=== PATIENT | female | born 2000 | race Caucasian/White ===

== ENCOUNTER 2019-02-02 17:54 | Inpatient (IN) ==
[2019-02-02] MEDS ORDERED: LR 1,000 ML ONE (18:45)
[2019-02-02] MEDS ORDERED: BRETHINE SUBQ PRN (19:11)
[2019-02-02] MEDS ORDERED: PEPCID PO PRN (19:11)
[2019-02-02] MEDS ORDERED: STADOL IV PRN ×2 (19:11)
[2019-02-02] MEDS ORDERED: LR 1,000 ML IV ONE (19:11)
[2019-02-02] MEDS ORDERED: PEPCID IV PRN (19:11)
[2019-02-02] MEDS ORDERED: REGLAN PO ONE (19:11)
[2019-02-02] MEDS ORDERED: PEPCID PO ONE (19:11)
[2019-02-02] MEDS ORDERED: KEFZOL 1 GM/D5W 1 GM/50 ML IVPB IV PRN (19:11)
[2019-02-02] MEDS ORDERED: AMBIEN PO PRN (19:11)
[2019-02-02] MEDS ORDERED: ZOFRAN IV PRN (19:11)
[2019-02-02] MEDS ORDERED: TYLENOL PO PRN (19:11)
[2019-02-02] MEDS ORDERED: LR 1,000 ML IV SCH (19:15)
[2019-02-02] MEDS ORDERED: XYLOCAINE-MPF 1% INJ PRN (19:15)
[2019-02-02] MEDS ORDERED: MINERAL OIL PRN (19:15)
[2019-02-02 19:20] LABS: URINE SOURCE VOIDED
[2019-02-02 19:34] LABS: BASO# 0.01 X1000 (0.0-0.2); BASO% 0.1 % (0.0-0.8); EOS# 0.07 X1000 (0.0-0.7); EOS% 0.6 % (0.0-10.0); HEMATOCRIT 34.1 % (37.0-47.0); HEMOGLOBIN 11.8 g/dL (12.0-16.0); IMM GRAN# 0.04 X1000 (0.0-0.04); IMM GRAN% 0.3 % (0.0-0.5); LYMPH# 2.23 X1000 (1.2-3.4); LYMPH% 19.3 % (20.5-51.1); MCH 27.3 PG (27-31); MCHC 34.6 g/dL (33-37); MCV 78.9 FL (81-99); MONO% 4.3 % (1.7-9.3); MPV 11.3 FL (7.4-10.4); NEUT# 8.72 X1000 (1.4-6.5); NEUT% 75.4 % (42.2-75.2); PLT 217 X1000 (130-400); RBC 4.32 XMIL (4.2-5.4); RDW 13.9 % (11.5-14.5); WBC 11.57 X1000 (4.8-10.8)
[2019-02-02 19:42] LABS: BILIRUBIN URINE NEGATIVE (NEGATIVE); BLOOD URINE NEGATIVE (NEGATIVE); CLARITY CLEAR (CLEAR); COLOR YELLOW; GLUCOSE URINE NEGATIVE (NEGATIVE); KETONE URINE NEGATIVE (NEGATIVE); LEUKOCYTES URINE NEGATIVE (NEGATIVE); NITRITE URINE NEGATIVE (NEGATIVE); PROTEIN URINE TRACE mg/dL (NEGATIVE); UROBILINOGEN URINE NORMAL
[2019-02-02 19:58] LABS: HEMOGLOBIN A1C 5.4 % (4.8-6.0)
[2019-02-02 20:01] LABS: UR AMPHETAMINES QUAL NONE DETECTED (NONE DETECT); UR BARBITUATES QUAL NONE DETECTED (NONE DETECT); UR BENZODIAZEPIN QUAL NONE DETECTED (NONE DETECT); UR CANNABINOIDS QUAL NONE DETECTED (NONE DETECT); UR COCAINE QUAL NONE DETECTED (NONE DETECT); UR METHADONE QUAL NONE DETECTED (NONE DETECT); UR METHAMPHETAMINE QUAL NONE DETECTED (NONE DETECT); UR OPIATES QUAL NONE DETECTED (NONE DETECT); UR OXYCODONE QUAL NONE DETECTED (NONE DETECT); UR PCP QUAL NONE DETECTED (NONE DETECT); UR PROPOXYPHENE QUAL NONE DETECTED (NONE DETECT); UR TCA QUAL NONE DETECTED (NONE DETECT)
[2019-02-02] MEDS: CYTOTEC PO SCH (20:35)
[2019-02-03] MEDS: CYTOTEC PO SCH ×2 (00:22→04:25)
--- NOTE | 2019-02-03 06:14 | HISTORY AND PHYSICAL ---
CHIEF COMPLAINT: Induction of labor. HISTORY OF PRESENT ILLNESS: Ms. Palacios is a 18-year-old, 1, para 0, at 39 to 40 weeks gestation who presents for elective induction. She had full care with Dr. Muhammad only complicated by abnormal 1 hour GTT with no 3 hour GTT secondary to patient's refusal. The patient reports active baby. Denies PIH symptoms. No contractions, vaginal bleeding, or loss of fluid. PAST MEDICAL HISTORY: Denies. PAST SURGICAL HISTORY: Denies. ALLERGIES: No known drug allergies. SOCIAL HISTORY: No tobacco, alcohol, or drug use. FAMILY HISTORY: Noncontributory. PHYSICAL EXAMINATION: VITAL SIGNS: Not yet recorded. GENERAL: Alert and oriented in no acute distress. CV: Regular rate and rhythm. PULMONARY: Clear to auscultation bilaterally. ABDOMEN: Soft, nondistended, and gravid. PELVIC: Cervix 125, -3, vertex. Bag of water intact. FHT's reassuring. LABORATORY: Pending. ASSESSMENT AND PLAN: Again, Ms. Palacios is a 18-year-old 1, para 0, 39 to 40 weeks, who presents for elective induction. Reassuring heart rate tracing, benign examination. We will proceed with Cytotec followed by Pitocin per protocol. The patient is anticipating a vaginal delivery. Patient desires future fertility. cc: Dionte Ortiz MD
[2019-02-03] MEDS ORDERED: PITOCIN 30 UNITS/NS 30 UNIT/500 ML IV.SOLN IV SCH ×2 (08:00→21:45)
[2019-02-03] MEDS: STADOL IV PRN ×4 (09:03→17:00)
--- NOTE | 2019-02-03 09:09 | OB/GYN PROGRESS NOTE ---
Progress Note OB - . OB Progress Note: Vital Signs - 24 hr 02/02/19 19:45 02/02/19 23:40 02/03/19 04:35 Temperature 97.6 F 97 F L 98.2 F Pulse Rate 78 79 81 Respiratory Rate 18 16 16 Blood Pressure 111/73 99/54 102/59 O2 Sat by Pulse Oximetry 98 98 97 Laboratory Results - last 24 hr 02/02/19 02/02/19 02/02/19 18:10 18:10 18:55 WBC RBC Hgb Hct MCV MCH MCHC RDW Std Deviation Plt Count MPV Immature Gran % (Auto) Neut % (Auto) Lymph % (Auto) [place] % (Auto) Eos % (Auto) Baso % (Auto) Immature Gran # (Auto) Neut # (Auto) Lymph # (Auto) [place] # (Auto) Eos # (Auto) Baso # (Auto) Estimat Average Glucose Hemoglobin A1c Urine Source VOIDED Urine Color YELLOW Urine Clarity CLEAR Urine pH 5.0 Ur Specific [place] 1.020 Urine Protein TRACE A Urine Ketones NEGATIVE Urine Blood NEGATIVE Urine Nitrite NEGATIVE Urine Bilirubin NEGATIVE Urine Urobilinogen NORMAL Urine WBC NEGATIVE Urine Glucose NEGATIVE Membranes Rupture Urine Opiates Screen NONE DETECTED Ur Oxycodone Screen NONE DETECTED Urine Methadone Screen NONE DETECTED U Propoxyphene Qual NONE DETECTED Ur Barbituates Screen NONE DETECTED Ur Tricyclics Screen NONE DETECTED Ur Phencyclidine Scrn NONE DETECTED Ur Amphetamines Screen NONE DETECTED U Methamphetamines Scrn NONE DETECTED U Benzodiazepines Scrn NONE DETECTED Urine Cocaine Screen NONE DETECTED U Cannabinoids Screen NONE DETECTED RPR NON-REACTIVE Blood Type Antibody Screen 02/02/19 02/02/19 02/02/19 18:55 18:55 21:37 WBC 11.57 H RBC 4.32 Hgb 11.8 L Hct 34.1 L MCV 78.9 L MCH 27.3 MCHC 34.6 RDW Std Deviation 13.9 Plt Count 217 MPV 11.3 H Immature Gran % (Auto) 0.3 Neut % (Auto) 75.4 H Lymph % (Auto) 19.3 L [place] % (Auto) 4.3 Eos % (Auto) 0.6 Baso % (Auto) 0.1 Immature Gran # (Auto) 0.04 Neut # (Auto) 8.72 H Lymph # (Auto) 2.23 [place] # (Auto) 0.50 Eos # (Auto) 0.07 Baso # (Auto) 0.01 Estimat Average Glucose 108 Hemoglobin A1c 5.4 Urine Source Urine Color Urine Clarity Urine pH Ur Specific [place] Urine Protein Urine Ketones Urine Blood Urine Nitrite Urine Bilirubin Urine Urobilinogen Urine WBC Urine Glucose Membranes Rupture Urine Opiates Screen Ur Oxycodone Screen Urine Methadone Screen U Propoxyphene Qual Ur Barbituates Screen Ur Tricyclics Screen Ur Phencyclidine Scrn Ur Amphetamines Screen U Methamphetamines Scrn U Benzodiazepines Scrn Urine Cocaine Screen U Cannabinoids Screen RPR Blood Type B POSITIVE Antibody Screen NEGATIVE 02/03/19 05:00 WBC RBC Hgb Hct MCV MCH MCHC RDW Std Deviation Plt Count MPV Immature Gran % (Auto) Neut % (Auto) Lymph % (Auto) [place] % (Auto) Eos % (Auto) Baso % (Auto) Immature Gran # (Auto) Neut # (Auto) Lymph # (Auto) [place] # (Auto) Eos # (Auto) Baso # (Auto) Estimat Average Glucose Hemoglobin A1c Urine Source Urine Color Urine Clarity Urine pH Ur Specific [place] Urine Protein Urine Ketones Urine Blood Urine Nitrite Urine Bilirubin Urine Urobilinogen Urine WBC Urine Glucose Membranes Rupture POSITIVE Urine Opiates Screen Ur Oxycodone Screen Urine Methadone Screen U Propoxyphene Qual Ur Barbituates Screen Ur Tricyclics Screen Ur Phencyclidine Scrn Ur Amphetamines Screen U Methamphetamines Scrn U Benzodiazepines Scrn Urine Cocaine Screen U Cannabinoids Screen RPR Blood Type Antibody Screen S: Patient without complaints. O: SVE: 2/thick/-3 FHTs: 120s; moderate variability; accelerations present; no apparent decels [place]: irritability A/P: 18yo at 40w3d with: 1. IUP- continue eIOL; s/p miso x3 doses overnight. Montiel bulb inserted for additional cervical ripening -ROM test positive overnight; no fever noted - well being: Cat 1 tracings 2. Failed 1hr GTT
--- NOTE | 2019-02-03 18:15 | OB/GYN PROGRESS NOTE ---
Progress Note OB - . OB Progress Note: Vital Signs - 24 hr 02/02/19 19:45 02/02/19 23:40 02/03/19 04:35 Temperature 97.6 F 97 F L 98.2 F Pulse Rate 78 79 81 Respiratory Rate 18 16 16 Blood Pressure 111/73 99/54 102/59 O2 Sat by Pulse Oximetry 98 98 97 02/03/19 08:00 02/03/19 12:00 02/03/19 15:29 Temperature 96.6 F L 97.3 F L 97.3 F L Pulse Rate 76 79 79 Respiratory Rate 16 18 16 Blood Pressure 118/56 97/52 114/56 O2 Sat by Pulse Oximetry 96 95 97 02/03/19 17:08 Temperature 96.8 F L Pulse Rate 18 L Respiratory Rate Blood Pressure 114/60 O2 Sat by Pulse Oximetry 96 Laboratory Results - last 24 hr 02/02/19 02/02/19 02/02/19 18:10 18:10 18:55 WBC RBC Hgb Hct MCV MCH MCHC RDW Std Deviation Plt Count MPV Immature Gran % (Auto) Neut % (Auto) Lymph % (Auto) [place] % (Auto) Eos % (Auto) Baso % (Auto) Immature Gran # (Auto) Neut # (Auto) Lymph # (Auto) [place] # (Auto) Eos # (Auto) Baso # (Auto) Estimat Average Glucose Hemoglobin A1c Urine Source VOIDED Urine Color YELLOW Urine Clarity CLEAR Urine pH 5.0 Ur Specific [place] 1.020 Urine Protein TRACE A Urine Ketones NEGATIVE Urine Blood NEGATIVE Urine Nitrite NEGATIVE Urine Bilirubin NEGATIVE Urine Urobilinogen NORMAL Urine WBC NEGATIVE Urine Glucose NEGATIVE Membranes Rupture Urine Opiates Screen NONE DETECTED Ur Oxycodone Screen NONE DETECTED Urine Methadone Screen NONE DETECTED U Propoxyphene Qual NONE DETECTED Ur Barbituates Screen NONE DETECTED Ur Tricyclics Screen NONE DETECTED Ur Phencyclidine Scrn NONE DETECTED Ur Amphetamines Screen NONE DETECTED U Methamphetamines Scrn NONE DETECTED U Benzodiazepines Scrn NONE DETECTED Urine Cocaine Screen NONE DETECTED U Cannabinoids Screen NONE DETECTED RPR NON-REACTIVE Blood Type Antibody Screen 02/02/19 02/02/19 02/02/19 18:55 18:55 21:37 WBC 11.57 H RBC 4.32 Hgb 11.8 L Hct 34.1 L MCV 78.9 L MCH 27.3 MCHC 34.6 RDW Std Deviation 13.9 Plt Count 217 MPV 11.3 H Immature Gran % (Auto) 0.3 Neut % (Auto) 75.4 H Lymph % (Auto) 19.3 L [place] % (Auto) 4.3 Eos % (Auto) 0.6 Baso % (Auto) 0.1 Immature Gran # (Auto) 0.04 Neut # (Auto) 8.72 H Lymph # (Auto) 2.23 [place] # (Auto) 0.50 Eos # (Auto) 0.07 Baso # (Auto) 0.01 Estimat Average Glucose 108 Hemoglobin A1c 5.4 Urine Source Urine Color Urine Clarity Urine pH Ur Specific [place] Urine Protein Urine Ketones Urine Blood Urine Nitrite Urine Bilirubin Urine Urobilinogen Urine WBC Urine Glucose Membranes Rupture Urine Opiates Screen Ur Oxycodone Screen Urine Methadone Screen U Propoxyphene Qual Ur Barbituates Screen Ur Tricyclics Screen Ur Phencyclidine Scrn Ur Amphetamines Screen U Methamphetamines Scrn U Benzodiazepines Scrn Urine Cocaine Screen U Cannabinoids Screen RPR Blood Type B POSITIVE Antibody Screen NEGATIVE 02/03/19 05:00 WBC RBC Hgb Hct MCV MCH MCHC RDW Std Deviation Plt Count MPV Immature Gran % (Auto) Neut % (Auto) Lymph % (Auto) [place] % (Auto) Eos % (Auto) Baso % (Auto) Immature Gran # (Auto) Neut # (Auto) Lymph # (Auto) [place] # (Auto) Eos # (Auto) Baso # (Auto) Estimat Average Glucose Hemoglobin A1c Urine Source Urine Color Urine Clarity Urine pH Ur Specific [place] Urine Protein Urine Ketones Urine Blood Urine Nitrite Urine Bilirubin Urine Urobilinogen Urine WBC Urine Glucose Membranes Rupture POSITIVE Urine Opiates Screen Ur Oxycodone Screen Urine Methadone Screen U Propoxyphene Qual Ur Barbituates Screen Ur Tricyclics Screen Ur Phencyclidine Scrn Ur Amphetamines Screen U Methamphetamines Scrn U Benzodiazepines Scrn Urine Cocaine Screen U Cannabinoids Screen RPR Blood Type Antibody Screen S: Patient without complaints. Feels contractions; declined epidural for now O: SVE: /-2 after saunders bulb removed FHTs: 120s; moderate variability; accelerations present; no apparent decels [facility]: irregular A/P: 18yo at 40w3d with: 1. IUP- continue eIOL; s/p miso x3 doses and saunders bulb -During examination, forebag ruptured overnight; titrate Pitocin -ROM test positive overnight; no fever noted - well being: Cat 1 tracings 2. Failed 1hr GTT
[2019-02-03] MEDS ORDERED: NAROPIN 0.2% INJ ONE (19:14)
[2019-02-03] MEDS ORDERED: FENTANYL-BUPIV-NS 2 MCG-0.1% 200 ML EPIDURAL SCH (19:15)
--- NOTE | 2019-02-03 19:33 | OB/GYN PROGRESS NOTE ---
Progress Note OB - . OB Progress Note: Vital Signs - 24 hr 02/02/19 19:45 02/02/19 23:40 02/03/19 04:35 Temperature 97.6 F 97 F L 98.2 F Pulse Rate 78 79 81 Respiratory Rate 18 16 16 Blood Pressure 111/73 99/54 102/59 O2 Sat by Pulse Oximetry 98 98 97 02/03/19 08:00 02/03/19 12:00 02/03/19 15:29 Temperature 96.6 F L 97.3 F L 97.3 F L Pulse Rate 76 79 79 Respiratory Rate 16 18 16 Blood Pressure 118/56 97/52 114/56 O2 Sat by Pulse Oximetry 96 95 97 02/03/19 17:08 02/03/19 18:55 Temperature 96.8 F L 97.4 F L Pulse Rate 18 L 80 Respiratory Rate 20 Blood Pressure 114/60 134/77 O2 Sat by Pulse Oximetry 96 98 Laboratory Results - last 24 hr 02/02/19 02/02/19 02/02/19 18:10 18:10 18:55 WBC RBC Hgb Hct MCV MCH MCHC RDW Std Deviation Plt Count MPV Immature Gran % (Auto) Neut % (Auto) Lymph % (Auto) [place] % (Auto) Eos % (Auto) Baso % (Auto) Immature Gran # (Auto) Neut # (Auto) Lymph # (Auto) [place] # (Auto) Eos # (Auto) Baso # (Auto) Estimat Average Glucose Hemoglobin A1c Urine Color YELLOW Urine Clarity CLEAR Urine pH 5.0 Ur Specific [place] 1.020 Urine Protein TRACE A Urine Ketones NEGATIVE Urine Blood NEGATIVE Urine Nitrite NEGATIVE Urine Bilirubin NEGATIVE Urine Urobilinogen NORMAL Urine WBC NEGATIVE Urine Glucose NEGATIVE Membranes Rupture Urine Opiates Screen NONE DETECTED Ur Oxycodone Screen NONE DETECTED Urine Methadone Screen NONE DETECTED U Propoxyphene Qual NONE DETECTED Ur Barbituates Screen NONE DETECTED Ur Tricyclics Screen NONE DETECTED Ur Phencyclidine Scrn NONE DETECTED Ur Amphetamines Screen NONE DETECTED U Methamphetamines Scrn NONE DETECTED U Benzodiazepines Scrn NONE DETECTED Urine Cocaine Screen NONE DETECTED U Cannabinoids Screen NONE DETECTED RPR NON-REACTIVE Blood Type Antibody Screen 02/02/19 02/02/19 02/02/19 18:55 18:55 21:37 WBC 11.57 H RBC 4.32 Hgb 11.8 L Hct 34.1 L MCV 78.9 L MCH 27.3 MCHC 34.6 RDW Std Deviation 13.9 Plt Count 217 MPV 11.3 H Immature Gran % (Auto) 0.3 Neut % (Auto) 75.4 H Lymph % (Auto) 19.3 L [place] % (Auto) 4.3 Eos % (Auto) 0.6 Baso % (Auto) 0.1 Immature Gran # (Auto) 0.04 Neut # (Auto) 8.72 H Lymph # (Auto) 2.23 [place] # (Auto) 0.50 Eos # (Auto) 0.07 Baso # (Auto) 0.01 Estimat Average Glucose 108 Hemoglobin A1c 5.4 Urine Color Urine Clarity Urine pH Ur Specific [place] Urine Protein Urine Ketones Urine Blood Urine Nitrite Urine Bilirubin Urine Urobilinogen Urine WBC Urine Glucose Membranes Rupture Urine Opiates Screen Ur Oxycodone Screen Urine Methadone Screen U Propoxyphene Qual Ur Barbituates Screen Ur Tricyclics Screen Ur Phencyclidine Scrn Ur Amphetamines Screen U Methamphetamines Scrn U Benzodiazepines Scrn Urine Cocaine Screen U Cannabinoids Screen RPR Blood Type B POSITIVE Antibody Screen NEGATIVE 02/03/19 05:00 WBC RBC Hgb Hct MCV MCH MCHC RDW Std Deviation Plt Count MPV Immature Gran % (Auto) Neut % (Auto) Lymph % (Auto) [place] % (Auto) Eos % (Auto) Baso % (Auto) Immature Gran # (Auto) Neut # (Auto) Lymph # (Auto) [place] # (Auto) Eos # (Auto) Baso # (Auto) Estimat Average Glucose Hemoglobin A1c Urine Color Urine Clarity Urine pH Ur Specific [place] Urine Protein Urine Ketones Urine Blood Urine Nitrite Urine Bilirubin Urine Urobilinogen Urine WBC Urine Glucose Membranes Rupture POSITIVE Urine Opiates Screen Ur Oxycodone Screen Urine Methadone Screen U Propoxyphene Qual Ur Barbituates Screen Ur Tricyclics Screen Ur Phencyclidine Scrn Ur Amphetamines Screen U Methamphetamines Scrn U Benzodiazepines Scrn Urine Cocaine Screen U Cannabinoids Screen RPR Blood Type Antibody Screen S. patient in bed writhing during contractions. Wants an epidural. She denies ASHLEY/Vision changes, CP, SOB. O. Vitals WNL FHM: 120, mod emory, + accels, early decels present, occasional variable decel. SVE: /-1 A/P 18yo G1 @ term undergoing eIOL now on pitocin. maternal monitoring reassuring. Epidural now.
[2019-02-03] MEDS ORDERED: BENADRYL IV PRN (21:39)
[2019-02-03] MEDS ORDERED: BOOSTRIX VACCINE IM ONE (21:39)
[2019-02-03] MEDS ORDERED: AMBIEN PO PRN (21:39)
[2019-02-03] MEDS ORDERED: BENADRYL PO PRN (21:39)
[2019-02-03] MEDS ORDERED: HYDROXYZINE IM PRN (21:39)
[2019-02-03] MEDS ORDERED: ATARAX PO PRN (21:39)
[2019-02-03] MEDS ORDERED: PERCOCET-10 PO PRN (21:39)
[2019-02-03] MEDS ORDERED: CYTOTEC PO PRN (21:39)
[2019-02-03] MEDS ORDERED: M-M-R II VACCINE SUBQ ONE (21:39)
[2019-02-03] MEDS ORDERED: PITOCIN 20 UNITS/NS 20 UNITS/1,000 ML IV.SOLN IV SCH (21:45)
[2019-02-04] MEDS: MOTRIN PO PRN ×3 (00:10→21:49)
[2019-02-04] MEDS: PERI MEDS (DERMOPLAST/NUPERCAINAL/TUCKS) MISC PRN (00:45)
[2019-02-04] MEDS ORDERED: PITOCIN 20 UNITS/NS 20 UNITS/1,000 ML IV.SOLN IV SCH (01:00)
[2019-02-04 07:05] LABS: HEMATOCRIT 31.4 % (37.0-47.0); HEMOGLOBIN 10.2 g/dL (12.0-16.0); MCH 26.4 PG (27-31); MCHC 32.5 g/dL (33-37); MCV 81.3 FL (81-99); MPV 11.8 FL (7.4-10.4); RBC 3.86 XMIL (4.2-5.4); RDW 13.8 % (11.5-14.5); WBC 14.54 X1000 (4.8-10.8)
--- NOTE | 2019-02-04 09:31 | OB/GYN PROGRESS NOTE ---
Progress Note OB - . OB Progress Note: Vital Signs - 24 hr 02/03/19 12:00 02/03/19 15:29 02/03/19 17:08 Temperature 97.3 F L 97.3 F L 96.8 F L Pulse Rate 79 79 18 L Respiratory Rate 18 16 Blood Pressure 97/52 114/56 114/60 Blood Pressure [Left Arm] O2 Sat by Pulse Oximetry 95 97 96 02/03/19 18:55 02/03/19 21:45 02/03/19 21:55 Temperature 97.4 F L 98.1 F Pulse Rate 80 104 H 110 H Respiratory Rate 20 18 18 Blood Pressure 134/77 112/59 Blood Pressure [Left Arm] 112/59 113/58 O2 Sat by Pulse Oximetry 98 96 98 02/03/19 22:05 02/03/19 22:15 02/03/19 22:25 Temperature Pulse Rate 104 H 96 H 92 H Respiratory Rate 18 18 18 Blood Pressure Blood Pressure [Left Arm] 113/65 113/65 115/61 O2 Sat by Pulse Oximetry 97 97 95 02/03/19 22:35 02/03/19 22:45 02/04/19 03:25 Temperature 98.1 F Pulse Rate 85 85 86 Respiratory Rate 18 18 18 Blood Pressure 110/59 109/56 Blood Pressure [Left Arm] 109/56 110/59 O2 Sat by Pulse Oximetry 96 96 95 Laboratory Results - last 24 hr 02/04/19 05:20 WBC 14.54 H RBC 3.86 L Hgb 10.2 L Hct 31.4 L MCV 81.3 MCH 26.4 L MCHC 32.5 L RDW Std Deviation 13.8 Plt Count 189 MPV 11.8 H S. Patient walking in the room. She is baby who is doing well. She is ambulating and urinating well. She is tolerating regular food and has light bleeding. O. Vitals WNL HEENT: Atraumatic, normocephalic Chest: CTAB Heart: RRR Abdomen soft, uterus below the umbilicus Ext: scant edema, NTTP A/P 18yo s/p Day 1. Patient doing well. Continue routine care.
--- NOTE | 2019-02-04 18:50 | OPERATIVE NOTE ---
PROCEDURE DATE: 02/04/2019 PREOPERATIVE DIAGNOSES: 1. Intrauterine at 40 weeks 3 days. 2. Induction of labor. POSTOPERATIVE DIAGNOSES: 1. Intrauterine at 40 weeks 3 days. 2. Induction of labor. PROCEDURE: Spontaneous vaginal delivery. ANESTHESIA: Epidural. FINDINGS: Male infant in cephalic presentation. Weight 7 pounds 5 ounces. Apgars of 9 and 10. COMPLICATIONS: None. ESTIMATED BLOOD LOSS: 300 mL. DESCRIPTION: A 18-year-old, who was induced at 40 weeks 3 days, progressed to complete. She pushed well and delivered a male infant over a first-degree tear in CAT position. The head was delivered atraumatically and nuchal cord was reduced. Anterior shoulder was then delivered followed by the posterior shoulder and rest of the body. The was then placed on the maternal abdomen and the cord was stripped and followed by clamping and cutting of the cord. Placenta was then delivered grossly intact in Schultze presentation. The vagina was then repaired with 3-0 Vicryl in a typical fashion. The patient had excellent hemostasis. cc: DO Dionte Anguiano MD
[2019-02-04] MEDS: PERICOLACE PO SCH (21:49)
[2019-02-05] MEDS: PERCOCET-5 PO PRN ×3 (00:47→16:13)
[2019-02-05] MEDS: MOTRIN PO PRN ×3 (05:40→22:12)
[2019-02-05] MEDS: PERI MEDS (DERMOPLAST/NUPERCAINAL/TUCKS) MISC PRN (14:27)
[2019-02-05] MEDS: PERICOLACE PO SCH (23:36)
--- NOTE | 2019-02-06 07:34 | OB/GYN PROGRESS NOTE ---
Progress Note OB - . OB Progress Note: Vital Signs - 24 hr 02/05/19 08:30 02/05/19 16:20 02/06/19 00:10 Temperature 96.6 F L 96.9 F L 97.6 F Pulse Rate 93 H 75 82 Respiratory Rate 18 18 18 Blood Pressure 128/76 120/70 119/63 O2 Sat by Pulse Oximetry 97 98 98 S: Patient without complaints. Denied fever, chills, N/V, SOB, or chest pain. Pain minimal and controlled. Lochia scant. Voiding without difficulty. without concerns. Desires some for of control. O: Gen: NAD CV: RRR Pulm: CTAB; no rhonchi, wheezing, or rales Abd: soft, non-tender, non-distended; fundus firm and below umbilicus Ext: no LE TTP Laboratory Last Values WBC 14.54 X1000 (4.8-10.8) H 02/04/19 05:20 RBC 3.86 XMIL (4.2-5.4) L 02/04/19 05:20 Hgb 10.2 g/dL (12.0-16.0) L 02/04/19 05:20 Hct 31.4 % (37.0-47.0) L 02/04/19 05:20 MCV 81.3 FL (81-99) 02/04/19 05:20 MCH 26.4 PG (27-31) L 02/04/19 05:20 MCHC 32.5 g/dL (33-37) L 02/04/19 05:20 RDW Std Deviation 13.8 % (11.5-14.5) 02/04/19 05:20 Plt Count 189 X1000 (130-400) 02/04/19 05:20 MPV 11.8 FL (7.4-10.4) H 02/04/19 05:20 Immature Gran % (Auto) 0.3 % (0.0-0.5) 02/02/19 18:55 Neut % (Auto) 75.4 % (42.2-75.2) H 02/02/19 18:55 Lymph % (Auto) 19.3 % (20.5-51.1) L 02/02/19 18:55 [place] % (Auto) 4.3 % (1.7-9.3) 02/02/19 18:55 Eos % (Auto) 0.6 % (0.0-10.0) 02/02/19 18:55 Baso % (Auto) 0.1 % (0.0-0.8) 02/02/19 18:55 Immature Gran # (Auto) 0.04 X1000 (0.0-0.04) 02/02/19 18:55 Neut # (Auto) 8.72 X1000 (1.4-6.5) H 02/02/19 18:55 Lymph # (Auto) 2.23 X1000 (1.2-3.4) 02/02/19 18:55 [place] # (Auto) 0.50 X1000 (0.11-0.59) 02/02/19 18:55 Eos # (Auto) 0.07 X1000 (0.0-0.7) 02/02/19 18:55 Baso # (Auto) 0.01 X1000 (0.0-0.2) 02/02/19 18:55 Estimat Average Glucose 108 mg/dL 02/02/19 18:55 Hemoglobin A1c 5.4 % (4.8-6.0) 02/02/19 18:55 Urine Source VOIDED 02/02/19 18:10 Urine Color YELLOW 02/02/19 18:10 Urine Clarity CLEAR (CLEAR) 02/02/19 18:10 Urine pH 5.0 02/02/19 18:10 Ur Specific [place] 1.020 02/02/19 18:10 Urine Protein TRACE mg/dL (NEGATIVE) A 02/02/19 18:10 Urine Ketones NEGATIVE mg/dL (NEGATIVE) 02/02/19 18:10 Urine Blood NEGATIVE (NEGATIVE) 02/02/19 18:10 Urine Nitrite NEGATIVE (NEGATIVE) 02/02/19 18:10 Urine Bilirubin NEGATIVE (NEGATIVE) 02/02/19 18:10 Urine Urobilinogen NORMAL mg/dL 02/02/19 18:10 Urine WBC NEGATIVE (NEGATIVE) 02/02/19 18:10 Urine Glucose NEGATIVE mg/dL (NEGATIVE) 02/02/19 18:10 Membranes Rupture POSITIVE 02/03/19 05:00 Urine Opiates Screen NONE DETECTED (NONE DETECT) 02/02/19 18:10 Ur Oxycodone Screen NONE DETECTED (NONE DETECT) 02/02/19 18:10 Urine Methadone Screen NONE DETECTED (NONE DETECT) 02/02/19 18:10 U Propoxyphene Qual NONE DETECTED (NONE DETECT) 02/02/19 18:10 Ur Barbituates Screen NONE DETECTED (NONE DETECT) 02/02/19 18:10 Ur Tricyclics Screen NONE DETECTED (NONE DETECT) 02/02/19 18:10 Ur Phencyclidine Scrn NONE DETECTED (NONE DETECT) 02/02/19 18:10 Ur Amphetamines Screen NONE DETECTED (NONE DETECT) 02/02/19 18:10 U Methamphetamines Scrn NONE DETECTED (NONE DETECT) 02/02/19 18:10 U Benzodiazepines Scrn NONE DETECTED (NONE DETECT) 02/02/19 18:10 Urine Cocaine Screen NONE DETECTED (NONE DETECT) 02/02/19 18:10 U Cannabinoids Screen NONE DETECTED (NONE DETECT) 02/02/19 18:10 RPR NON-REACTIVE (NONREACTIVE) 02/02/19 18:55 Blood Type B POSITIVE 02/02/19 21:37 Antibody Screen NEGATIVE 02/02/19 21:37 A&P: 18yo s/p at 40w3d, PPD#3 1. PPD# 3 -No concerns; discharge to home today -f/u in about 4-6 weeks - precautions discussed -declined control at this time, will plan to discuss at her outpt visit; pelvic rest recommended until visit
[2019-02-06 07:44] VITALS: BP 119/76
--- NOTE | 2019-02-06 08:44 | DISCHARGE SUMMARY ---
ADMISSION DATE: 02/02/2019 DISCHARGE DATE: 02/06/2019 DISCHARGE DIAGNOSES: 1. 18-year-old G1, P1-0-0-1, status post spontaneous vaginal delivery (on 02/03/2019), day number 3. 2. Failed 1-hour glucose tolerance test. HOSPITAL COURSE: This is a 18-year-old now G1, P1-0-0-1, that was admitted on 02/02/2019 for an elective induction of labor. This was a patient of Dr. Muhammad. The patient's labor course was unremarkable. She had a spontaneous vaginal delivery on 02/03/2019. The patient delivered a live male , weight 7 pounds 5 ounces, Apgars 9 and 10 at 1 and 5 minutes, respectively. The patient had a first degree laceration. Please see operative report of her spontaneous vaginal delivery for more details. course was complete without complications. Patient was discharged on day number 3. The patient was . The patient desires some form of control which she will plan to discuss at her visit. precautions discussed and given. DISCHARGE DIET: Regular. DISCHARGE DISPOSITION: Stable. DIAGNOSTIC DATA: Predelivery hemoglobin and hematocrit 11.8 and 34.1. Postdelivery hemoglobin and hematocrit 10.2 and 31.4. Platelet count 189. DISCHARGE MEDICATIONS: Ibuprofen 800 mg q.8 hours p.r.n. and Colace 100 mg 1 tab b.i.d. p.o. DISCHARGE INSTRUCTIONS: The patient was instructed to follow up with Dr. Muhammad in approximately 6 weeks. Pelvic rest was discussed. cc: Dionte Ortiz MD MTDD
== END 2019-02-06 10:15 | disposition home or self-care (01) | DRG 807 ==
LOC: P.LD 17:54
PROVIDERS: ADMIT Obstetrics & Gynecology; ATTEND Obstetrics & Gynecology
CPT/HCPCS: 59025; 80104; 80301; 80305; 81003; 83036; 84112; 85025; 85027; 86592; 86850; 86900; 86901; A9270; G0431; G0434; G0477; J0595; J2590; J2795; J7120